=== PATIENT | female | born 1970 | race Caucasian/White ===

== ENCOUNTER 2017-02-16 19:37 | Emergency (ER) | payer MEDICAID ==
[2017-02-16 19:37] VITALS: BMI 26.6
--- NOTE | 2017-02-16 21:15 | C.PDOC ---
History Of Present Illness 46 y/o female presents to the ED with complaints of cough and congestion x3 days. Denies fever, chills, sore throat, vomiting or any other complaints. Time Seen by Provider: 02/16/17 20:00 Chief Complaint (Nursing): Cough, Cold, Congestion History Per: Patient History/Exam Limitations: no limitations Onset/Duration Of Symptoms: Days Current Symptoms Are (Timing): Still Present Sick Contacts (Context): None Associated Symptoms: Cough, Nasal Congestion. denies: Fever, Sore Throat, Vomiting Severity: Mild Recent travel outside of the [place]: No Past Medical History Reviewed: Historical Data, Nursing Documentation, Vital Signs Vital Signs: Last Vital Signs Temp 98 F 02/16/17 19:56 Pulse 80 02/16/17 19:56 Resp 16 02/16/17 19:56 BP 121/78 02/16/17 19:56 Pulse Ox 98 02/16/17 21:15 - Medical History PMH: Gastritis, HTN, Hypercholesterolemia, Migraine Surgical History: Family History: States: Unknown Family Hx, Hypertension - Social History Hx Tobacco Use: No Hx Alcohol Use: No Hx Substance Use: No - Immunization History Hx Tetanus Toxoid Vaccination: Yes Hx Influenza Vaccination: Yes Hx Pneumococcal Vaccination: No Review Of Systems Constitutional: Negative for: Fever, Chills ENT: Positive for: Nose Congestion. Negative for: Throat Pain Respiratory: Positive for: Cough Gastrointestinal: Negative for: Vomiting Physical Exam - Physical Exam Appears: Non-toxic, No Acute Distress Skin: Warm, Dry, No Rash Head: Atraumatic, Normacephalic Ear(s): Bilateral: Normal Nose: Other (nasal congestion) Oral Mucosa: Moist Throat: Erythema, No Exudate Neck: Normal, Normal ROM, Supple Chest: Symmetrical Cardiovascular: Rhythm Regular, No Murmur Respiratory: Normal Breath Sounds, No Rales, No Rhonchi, No Wheezing Neurological/Psych: Oriented x3, Normal Speech ED Course And Treatment O2 Sat by Pulse Oximetry: 98 (room air) Pulse Ox Interpretation: Normal Medical Decision Making Medical Decision Making: CXR normal. Discharged home with Rx cough medicine Disposition - Disposition Referrals: Simran Szymanski MD [Staff Provider] - Disposition: HOME/ ROUTINE Disposition Time: 21:11 Condition: STABLE Additional Instructions: Follow up with your PMD within 1-2 days. Return to ED if feel worse. Prescriptions: Brompheniramine/Pseudoephed/Dm [Bromfed Dm Cough 118 ml] 10 ml PO Q4 #300 ml Fluticasone Nasal [Flonase] 1 spr NS BID #1 spr Ibuprofen [Motrin Tab] 400 mg PO Q8 #30 tab Instructions: Upper Respiratory Infection (ED) - Clinical Impression Clinical Impression: Upper respiratory infection - PA / HOUSE CLEANER / Resident Statement MD/DO has reviewed & agrees with the documentation as recorded. - Scribe Statement The provider has reviewed the documentation as recorded by the Scribchandrika Pelayo All medical record entries made by the Vitor were at my direction and personally dictated by me. I have reviewed the chart and agree that the record accurately reflects my personal performance of the history, physical exam, medical decision making, and the department course for this patient. I have also personally directed, reviewed, and agree with the discharge instructions and disposition.
--- NOTE | 2017-02-17 08:48 | RAD ---
HISTORY: cough/congestion COMPARISON: Comparison is made to 10/08/2016 TECHNIQUE: Chest PA and lateral FINDINGS: LUNGS: No active pulmonary disease. PLEURA: No significant pleural effusion identified. No pneumothorax apparent. CARDIOVASCULAR: Normal. OSSEOUS STRUCTURES: No significant abnormalities. VISUALIZED UPPER ABDOMEN: Normal. OTHER FINDINGS: None. IMPRESSION: No radiographic evidence of pneumonia or pleural effusion.
[2017-02-17 12:08] VITALS: BP 121/78; PULSE 80; RESP 16; TEMP 98; O2SAT 98
== END 2017-02-16 21:28 | disposition home or self-care (01) ==
LOC: C.ER 19:37
DX: J06.9 Acute upper respiratory infection, unspecified (principal)

== ENCOUNTER 2017-03-07 21:45 | Emergency (ER) | payer MEDICAID ==
[2017-03-07 21:45] VITALS: BMI 26.6
[2017-03-07 22:09] VITALS: BP 112/77; PULSE 62; RESP 20; TEMP 98.3; O2SAT 100
--- NOTE | 2017-03-07 22:32 | C.PDOC ---
History Of Present Illness 46 year old female with a Hx of HTN who presents to the ER with a complaint of a mild headache for the past week. Patient states she is not on any HTN medication any more because her PMD took her off them; however, she feels her blood pressure is elevated and wants to be evaluated. Denies nausea, vomiting, dizziness, SOB, or chest pain. Time Seen by Provider: 03/07/17 21:58 Chief Complaint (Nursing): Headache History Per: Patient History/Exam Limitations: no limitations Onset/Duration Of Symptoms: Hrs Current Symptoms Are (Timing): Still Present Preceeding Symptoms: None Associated Symptoms: denies: Nausea, Vomiting Recent travel outside of the [place]: No Past Medical History Reviewed: Historical Data, Nursing Documentation, Vital Signs Vital Signs: Last Vital Signs Temp 98.3 F 03/07/17 22:02 Pulse 62 03/07/17 22:02 Resp 20 03/07/17 22:02 BP 112/77 03/07/17 22:02 Pulse Ox 100 03/07/17 22:32 - Medical History PMH: Gastritis, HTN, Hypercholesterolemia, Migraine Surgical History: Family History: States: Unknown Family Hx, Hypertension - Social History Hx Tobacco Use: No Hx Alcohol Use: No Hx Substance Use: No - Immunization History Hx Tetanus Toxoid Vaccination: Yes Hx Influenza Vaccination: Yes Hx Pneumococcal Vaccination: No Review Of Systems Cardiovascular: Negative for: Chest Pain Respiratory: Negative for: Shortness of Breath Gastrointestinal: Negative for: Nausea, Vomiting Neurological: Positive for: Headache. Negative for: Dizziness Physical Exam - Physical Exam Appears: Non-toxic, No Acute Distress Skin: Normal Color, Warm, Dry Head: Atraumatic, Normacephalic Eye(s): bilateral: Normal Inspection, EOMI Oral Mucosa: Moist Neck: Normal, Supple Chest: Symmetrical, No Tenderness Cardiovascular: Rhythm Regular, No Murmur Respiratory: Normal Breath Sounds, No Rales, No Rhonchi, No Wheezing Gastrointestinal/Abdominal: Soft, No Tenderness Neurological/Psych: Oriented x3, Normal Speech, Normal Cognition ED Course And Treatment O2 Sat by Pulse Oximetry: 100 (Room air) Pulse Ox Interpretation: Normal Progress Note: Patient reassured that her blood pressure is within normal limits. Patient advised to follow up with PMD. Disposition Counseled Patient/Family Regarding: Diagnosis, Need For Followup, Rx Given - Disposition Disposition: HOME/ ROUTINE Disposition Time: 22:30 Condition: STABLE Additional Instructions: Please follow up with PMD Tylenol or advil if headache\ regresa si peor Forms: [employer] (Bulgarian) Print Language: SALVADOREAN - Clinical Impression Clinical Impression: Headache, Encounter for medical screening examination - Scribe Statement The provider has reviewed the documentation as recorded by the Scribe Markel Reese All medical record entries made by the Scribe were at my direction and personally dictated by me. I have reviewed the chart and agree that the record accurately reflects my personal performance of the history, physical exam, medical decision making, and the department course for this patient. I have also personally directed, reviewed, and agree with the discharge instructions and disposition.
== END 2017-03-07 22:46 | disposition home or self-care (01) ==
LOC: C.ER 21:45
DX: Z00.00 Encounter for general adult medical examination without abnormal findings (principal); R51 Headache

== ENCOUNTER 2017-04-21 16:57 | Emergency (ER) | payer MEDICAID ==
[2017-04-21 16:57] VITALS: BMI 26.6
--- NOTE | 2017-04-21 18:37 | C.PDOC ---
History Of Present Illness Marina Dyer is a 46 year old female, with a past medical history of hypertension and hypercholesterolemia, who presents to the emergency department complaining of sore throat, and cough onset for 7 days. Patient denies any fever , chills, nausea, vomit and abdominal pain. PMD: Stephon,Abaid U Time Seen by Provider: 04/21/17 17:58 Chief Complaint (Nursing): Flu-like Symptoms History Per: Patient History/Exam Limitations: no limitations Onset/Duration Of Symptoms: Days (7) Current Symptoms Are (Timing): Still Present Location Of Pain: Throat Associated Symptoms: Sore Throat, Cough. denies: Fever, Chills, Nausea, Vomiting Severity: Mild Past Medical History Reviewed: Historical Data, Nursing Documentation, Vital Signs Vital Signs: Last Vital Signs Temp 97.6 F 04/21/17 19:05 Pulse 70 04/21/17 19:05 Resp 16 04/21/17 19:05 BP 102/75 04/21/17 19:05 Pulse Ox 99 04/21/17 19:05 - Medical History PMH: Gastritis, HTN, Hypercholesterolemia, Migraine Surgical History: Family History: States: Unknown Family Hx, Hypertension - Social History Hx Tobacco Use: No Hx Alcohol Use: No Hx Substance Use: No - Immunization History Hx Tetanus Toxoid Vaccination: Yes Hx Influenza Vaccination: Yes Hx Pneumococcal Vaccination: No Review Of Systems Constitutional: Negative for: Fever, Chills ENT: Positive for: Throat Pain (sore throat) Respiratory: Positive for: Cough Gastrointestinal: Negative for: Nausea, Vomiting, Abdominal Pain Physical Exam - Physical Exam Appears: Well, Non-toxic, No Acute Distress Skin: Normal Color, Warm, Dry Head: Atraumatic, Normacephalic Eye(s): bilateral: Normal Inspection, PERRL, EOMI Ear(s): Bilateral: Normal Nose: Normal Oral Mucosa: Moist Tongue: Normal Appearing Lips: Normal Appearing Gingiva: Normal Appearing Throat: Normal Neck: Normal, Normal ROM Chest: Symmetrical Cardiovascular: Rhythm Regular, No Murmur Respiratory: Normal Breath Sounds Gastrointestinal/Abdominal: Normal Exam Extremity: Normal ROM, No Tenderness Neurological/Psych: Oriented x3, Normal Speech, Normal Cognition, Normal Motor, Normal Sensation ED Course And Treatment O2 Sat by Pulse Oximetry: 97 (RA) Pulse Ox Interpretation: Normal Medical Decision Making Medical Decision Making: Scribe Attestation The documentation for this encounter was entered by David Grayson acting as a scribe for Suzi HALEY All medical record entries made by the Scribe were at my direction and personally dictated by me. I have reviewed the chart and agree that the record accurately reflects my personal performance of the history, physical exam, medical decision making, and the department course for this patient. I have also personally directed, reviewed, and agree with the discharge instructions and disposition. Disposition Counseled Patient/Family Regarding: Studies Performed, Diagnosis, Need For Followup - Disposition Referrals: Simran Szymanski MD [Staff Provider] - Disposition: HOME/ ROUTINE Disposition Time: 18:45 Condition: STABLE Additional Instructions: DRINK PLENTY OF WATER. FOLLOW UP WITH PMD ON SUNDAY FOR RE-EVALUATION. IF SYMPTOMS GET WORSE OR ANY NEW CONCERNING SYMPTOMS DEVELOP RETURN TO ED. Instructions: Upper Respiratory Infection (ED) Forms: [facility] (Yoruba), Gen Discharge Inst Indonesian Print Language: BOTSWANAN - Clinical Impression Clinical Impression: Viral syndrome
[2017-04-21 19:06] VITALS: BP 102/75; PULSE 70; RESP 16; TEMP 97.6
[2017-04-21 22:24] VITALS: O2SAT 97
== END 2017-04-21 19:10 | disposition home or self-care (01) ==
LOC: C.ER 16:57
DX: B34.9 Viral infection, unspecified (principal)

== ENCOUNTER 2017-06-04 16:41 | Emergency (ER) | payer MEDICAID ==
[2017-06-04 16:41] VITALS: BMI 26.6
[2017-06-04 17:25] VITALS: TEMP 97.6; O2SAT 98
--- NOTE | 2017-06-04 18:13 | C.PDOC ---
History Of Present Illness 47 yr old female presents to the ER with complaints of intermittent left eye twitching for the past 3 days. Patient reports history of anxiety. Denies history of brain injury, fever, vision changes, headache or dizziness. Time Seen by Provider: 06/04/17 18:08 Chief Complaint (Nursing): Eye Problem History Per: Patient History/Exam Limitations: no limitations Onset/Duration Of Symptoms: Days (3) Current Symptoms Are (Timing): Still Present Past Medical History Reviewed: Historical Data, Nursing Documentation, Vital Signs Vital Signs: Last Vital Signs Temp 97.6 F 06/04/17 17:23 Pulse 72 06/04/17 18:17 Resp 18 06/04/17 18:17 BP 128/75 06/04/17 18:17 Pulse Ox 98 06/04/17 18:17 - Medical History PMH: Gastritis, HTN, Hypercholesterolemia, Migraine Surgical History: Family History: States: Hypertension - Social History Hx Tobacco Use: No Hx Alcohol Use: No Hx Substance Use: No - Immunization History Hx Tetanus Toxoid Vaccination: Yes Hx Influenza Vaccination: Yes Hx Pneumococcal Vaccination: No Review Of Systems Except As Marked, All Systems Reviewed And Found Negative. Constitutional: Negative for: Fever Eyes: Positive for: Other (Left eye twitching). Negative for: Vision Change Neurological: Negative for: Headache, Dizziness Physical Exam - Physical Exam Appears: Non-toxic, No Acute Distress Skin: Warm, Dry, No Rash Head: Atraumatic, Normacephalic Oral Mucosa: Moist Chest: Symmetrical, No Tenderness Cardiovascular: Rhythm Regular, No Murmur Respiratory: Normal Breath Sounds, No Rales, No Rhonchi, No Stridor, No Wheezing Extremity: Normal ROM, No Swelling Neurological/Psych: Oriented x3, Normal Speech, Normal Motor ED Course And Treatment O2 Sat by Pulse Oximetry: 98 (RA) Pulse Ox Interpretation: Normal Medical Decision Making Medical Decision Making: L eye twiching intermittently for 3 days normal exam many prior ED visits reassured. Disposition Doctor Will See Patient In The: Office Counseled Patient/Family Regarding: Studies Performed, Diagnosis - Disposition Referrals: Simran Szymanski MD [Staff Provider] - Disposition: HOME/ ROUTINE Disposition Time: 18:14 Condition: GOOD Additional Instructions: Sigue con floyd medico socrates necessario Forms: Gen Discharge Inst Amharic, Ging[employer] (Prydeinig) Print Language: BRUNEIAN - Clinical Impression Clinical Impression: Eyelid twitch - Scribe Statement The provider has reviewed the documentation as recorded by the Scribe Hannah Justin Provider Attestation: All medical record entries made by the Kennethibe were at my direction and personally dictated by me. I have reviewed the chart and agree that the record accurately reflects my personal performance of the history, physical exam, medical decision making, and the department course for this patient. I have also personally directed, reviewed, and agree with the discharge instructions and disposition.
[2017-06-04 18:17] VITALS: BP 128/75; PULSE 72; RESP 18
== END 2017-06-04 18:18 | disposition home or self-care (01) ==
LOC: C.ER 16:41
DX: R25.3 Fasciculation (principal)

== ENCOUNTER 2017-09-29 20:54 | Emergency (ER) | payer MEDICAID ==
[2017-09-29 20:54] VITALS: BMI 26.6
[2017-09-29 21:27] VITALS: BP 120/80; PULSE 80; TEMP 98.8; O2SAT 99
--- NOTE | 2017-09-29 22:29 | C.PDOC ---
History Of Present Illness 47 year old female with history of chronic back pain on naproxen and flexeril presents to the ED for evaluation of left low back pain radiating to left hip and left leg. Patient denies trauma, bladder/bowel incontinence, or urinary symptoms. Patient is concerned as pain has not radiated into left leg in the past. No other acute complaints. Time Seen by Provider: 09/29/17 21:52 Chief Complaint (Nursing): Back Pain History Per: Patient History/Exam Limitations: no limitations Onset/Duration Of Symptoms: Days Current Symptoms Are (Timing): Still Present Previous Symptoms: Chronic Pain Associated Symptoms: denies: Incontinence, New Weakness, New Numbness Recent travel outside of the [place]: No Past Medical History Reviewed: Historical Data, Nursing Documentation, Vital Signs Vital Signs: Last Vital Signs Temp 98.8 F 09/29/17 21:22 Pulse 80 09/29/17 21:22 Resp 20 09/29/17 22:35 BP 120/80 09/29/17 21:22 Pulse Ox 99 09/29/17 23:46 - Medical History PMH: Gastritis, HTN, Hypercholesterolemia, Migraine Surgical History: Family History: States: Unknown Family Hx, Hypertension - Social History Hx Tobacco Use: No Hx Alcohol Use: No Hx Substance Use: No - Immunization History Hx Tetanus Toxoid Vaccination: Yes Hx Influenza Vaccination: Yes Hx Pneumococcal Vaccination: No Review Of Systems Constitutional: Negative for: Fever, Chills ENT: Negative for: Ear Pain, Throat Pain Cardiovascular: Negative for: Chest Pain Respiratory: Negative for: Cough, Shortness of Breath Gastrointestinal: Negative for: Nausea, Vomiting, Abdominal Pain Genitourinary: Negative for: Dysuria, Frequency, Incontinence Musculoskeletal: Positive for: Back Pain, Leg Pain Skin: Negative for: Rash Neurological: Negative for: Weakness, Numbness, Headache Physical Exam - Physical Exam Appears: Well, Non-toxic, No Acute Distress Skin: Normal Color, Warm, Dry Head: Atraumatic, Normacephalic Eye(s): bilateral: Normal Inspection, PERRL, EOMI Oral Mucosa: Moist Neck: Normal ROM, Supple Chest: Symmetrical Back: Normal Inspection, Straight Leg Raising (positive at 40 degrees on left), Other (left paralumbar tenderness, good strength and sensation.) Extremity: Normal ROM, No Deformity Extremity: Bilateral: Atraumatic Pulses: Left Dorsalis Pedis: Normal, Right Dorsalis Pedis: Normal Neurological/Psych: Oriented x3, Normal Speech Gait: Steady ED Course And Treatment O2 Sat by Pulse Oximetry: 99 Pulse Ox Interpretation: Normal Progress Note: Pain has improved since last dose of medication, no neuro deficits, fully ambulatory in ED. Will discharge for outpatient follow up. Disposition Counseled Patient/Family Regarding: Diagnosis, Need For Followup, Rx Given - Disposition Disposition: HOME/ ROUTINE Disposition Time: 22:27 Condition: STABLE Additional Instructions: Please follow up with PMD Continue current medications Return to ER if worse Instructions: Chronic Pain (DC) Forms: [employer] (Czech) Print Language: GREEK - Clinical Impression Clinical Impression: Chronic low back pain - Scribe Statement The provider has reviewed the documentation as recorded by the Scribe (Flaco Denson) All medical record entries made by the Scribe were at my direction and personally dictated by me. I have reviewed the chart and agree that the record accurately reflects my personal performance of the history, physical exam, medical decision making, and the department course for this patient. I have also personally directed, reviewed, and agree with the discharge instructions and disposition.
[2017-09-29 22:36] VITALS: RESP 20
== END 2017-09-29 22:35 | disposition home or self-care (01) ==
LOC: C.ER 20:54
DX: G89.29 Other chronic pain (principal); M54.5 Low back pain; I10 Essential (primary) hypertension; E78.00 Pure hypercholesterolemia, unspecified

== ENCOUNTER 2018-03-24 23:09 | Emergency (ER) | payer MEDICAID ==
[2018-03-24 23:09] VITALS: BMI 26.6
[2018-03-24 23:14] VITALS: BP 130/83; PULSE 80; RESP 16; TEMP 98.3; O2SAT 99
--- NOTE | 2018-03-25 00:13 | C.PDOC ---
History Of Present Illness 47 y/o female presents to the ER complaining of a sore throat for four days. She reports taking over the counter medication with no relief. The patient denies any headache, associated fever, coughing or chest pain. (Hailee Spear) History Per: Patient History/Exam Limitations: no limitations Onset/Duration Of Symptoms: Days Current Symptoms Are (Timing): Still Present Location Of Pain: Throat Associated Symptoms: Sore Throat. denies: Fever, Cough, Neck Pain Ear Symptoms: Bilateral: None Recent travel outside of the [place]: No Time Seen by Provider: 03/24/18 23:27 Chief Complaint (Nursing): ENT Problem Past Medical History Reviewed: Historical Data, Nursing Documentation, Vital Signs - Medical History PMH: Gastritis, HTN, Hypercholesterolemia, Migraine Surgical History: Family History: States: Unknown Family Hx, Hypertension - Social History Hx Tobacco Use: No Hx Alcohol Use: No Hx Substance Use: No - Immunization History Hx Tetanus Toxoid Vaccination: Yes Hx Influenza Vaccination: Yes Hx Pneumococcal Vaccination: No Vital Signs: Last Vital Signs Temp 98.3 F 03/24/18 23:11 Pulse 80 03/24/18 23:11 Resp 16 03/24/18 23:11 BP 130/83 03/24/18 23:11 Pulse Ox 99 03/25/18 02:11 Review Of Systems Except As Marked, All Systems Reviewed And Found Negative. Constitutional: Negative for: Fever, Chills ENT: Positive for: Throat Pain. Negative for: Ear Pain, Nose Congestion Cardiovascular: Negative for: Chest Pain Respiratory: Negative for: Cough Physical Exam - Physical Exam Appears: Well, Non-toxic, Toxic Skin: Normal Color, Warm, Dry Head: Atraumatic, Normacephalic Eye(s): bilateral: PERRL, EOMI Ear(s): Bilateral: Normal Nose: Normal Oral Mucosa: Moist Tongue: Normal Appearing Throat: Erythema (to the pharynx with small ulcerated sores to left tonsil), No Exudate Neck: Normal, Supple Chest: Symmetrical Cardiovascular: Rhythm Regular, No Murmur Respiratory: No Rales, No Rhonchi, No Wheezing Neurological/Psych: Oriented x3 ED Course And Treatment O2 Sat by Pulse Oximetry: 99 (RA) Pulse Ox Interpretation: Normal Progress Note: Ordered rapid strep test. Rapid strep was negative-. Pt advised to continue fluids, analgesics and chloraseptic spray. 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 - Scribe Statement The provider has reviewed the documentation as recorded by the Scribe (Naomi Blanc) - Scribe Statement All medical record entries made by the Scribe were at my direction and personally dictated by me. I have reviewed the chart and agree that the record accurately reflects my personal performance of the history, physical exam, medical decision making, and the department course for this patient. I have also personally directed, reviewed, and agree with the discharge instructions and disposition. (Hailee Spear)
== END 2018-03-25 00:56 | disposition home or self-care (01) ==
LOC: C.ER 23:09
DX: J02.8 Acute pharyngitis due to other specified organisms (principal)

== ENCOUNTER 2018-09-08 17:46 | Emergency (ER) | payer MEDICAID ==
[2018-09-08 18:09] VITALS: BMI 29.1
[2018-09-08 18:12] VITALS: RESP 18; TEMP 98.3
--- NOTE | 2018-09-08 19:05 | C.PDOC ---
History Of Present Illness Government Affairs Researcher was used for HPI. Translators name is Giuliana (#[id number]). 48 year old female came in to ED as a visitor to somebody else and now complains of left lower back pain that radiates down to her leg for the past month. Patient was seen by a doctor and was given Naprosyn but doesnt take it every day because she has gastritis. She denies numbness, tingling, saddle anesthesia, or trauma. Patient is requesting a shot for pain medications. Time Seen by Provider: 09/08/18 18:19 Chief Complaint (Nursing): Back Pain History Per: Patient History/Exam Limitations: no limitations Onset/Duration Of Symptoms: Days Current Symptoms Are (Timing): Still Present Past Medical History Reviewed: Historical Data, Nursing Documentation, Vital Signs Vital Signs: Last Vital Signs Temp 98.3 F 09/08/18 18:08 Pulse 85 09/08/18 18:08 Resp 18 09/08/18 18:08 BP 112/78 09/08/18 18:08 Pulse Ox 97 09/08/18 18:08 - Medical History PMH: Gastritis, HTN, Hypercholesterolemia, Migraine Surgical History: Family History: States: Unknown Family Hx, Hypertension - Social History Hx Tobacco Use: No Hx Alcohol Use: No Hx Substance Use: No - Immunization History Hx Tetanus Toxoid Vaccination: No Hx Influenza Vaccination: No Hx Pneumococcal Vaccination: No Review Of Systems Constitutional: Negative for: Fever, Chills Cardiovascular: Negative for: Chest Pain Respiratory: Negative for: Shortness of Breath Gastrointestinal: Negative for: Nausea, Vomiting, Abdominal Pain Genitourinary: Negative for: Dysuria Musculoskeletal: Positive for: Back Pain (left lower back, radiating to legs) Neurological: Negative for: Numbness (or tingling), Other (saddle anesthesia) Physical Exam - Physical Exam Appears: Non-toxic, No Acute Distress Skin: Warm, Dry Head: Atraumatic, Normacephalic Eye(s): bilateral: Normal Inspection Oral Mucosa: Moist Neck: Supple Cardiovascular: Rhythm Regular, No Murmur Respiratory: Normal Breath Sounds, No Rales, No Rhonchi, No Wheezing Gastrointestinal/Abdominal: Soft, No Tenderness Back: No Straight Leg Raising Extremity: Tenderness (mild left sciatic tenderness), Capillary Refill (less than 2 seconds) Extremity: Bilateral: Normal Color And Temperature, Normal ROM Neurological/Psych: Oriented x3, Normal Speech, Normal Motor, Normal Sensation ED Course And Treatment O2 Sat by Pulse Oximetry: 97 (RA) Pulse Ox Interpretation: Normal Medical Decision Making Medical Decision Making: Plan: --Toradol 30 mg IM --Urine Test 1940pt feeling better after toradol. pt advised to f/u pmd and get referral to physcial therapy. 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 - Scribe Statement The provider has reviewed the documentation as recorded by the Scribchandrika Street All medical record entries made by the Kennethibchandrika were at my direction and personally dictated by me. I have reviewed the chart and agree that the record accurately reflects my personal performance of the history, physical exam, medical decision making, and the department course for this patient. I have also personally directed, reviewed, and agree with the discharge instructions and disposition.
[2018-09-08 19:50] VITALS: BP 106/68; PULSE 72; O2SAT 99
== END 2018-09-08 19:50 | disposition home or self-care (01) ==
LOC: C.ER 17:46
DX: M54.32 Sciatica, left side (principal)
CPT/HCPCS: 81025; 96372; 99283; J1885